=== PATIENT | male | born 1995 | race Caucasian/White ===

== ENCOUNTER 2021-10-04 10:57 | Outpatient (CLI) | payer OTHER | END 2021-10-04 23:59 | disposition critical access hospital (66) | LOC: EMS 10:57 | DX: R55 Syncope and collapse (principal); R42 Dizziness and giddiness; R41.82 Altered mental status, unspecified; W18.39XA Other fall on same level, initial encounter; Y93.H9 Activity, other involving exterior property and land maintenance, building and construction; Y92.69 Other specified industrial and construction area as the place of occurrence of the external cause; Y99.0 Civilian activity done for income or pay | CPT/HCPCS: A0425; A0429 ==

== ENCOUNTER 2021-10-04 11:05 | Emergency (ER) | payer OTHER ==
[2021-10-04 11:31] LABS: BASOPHILS % (AUTO) 0.3 %; EOSINOPHILS # (AUTO) 0.2 10^3/uL (0.0-0.7); HCT - HEMATOCRIT 44.2 % (42.0-52.0); HGB - HEMOGLOBIN 15.3 g/dL (14.0-18.0); LYMPHOCYTES # (AUTO) 2.6 10^3/uL (1.5-3.5); LYMPHOCYTES % (AUTO) 45.1 %; MEAN CORPUSCULAR HGB CONC 34.6 g/dL (32.0-36.0); MEAN CORPUSCULAR VOLUME 83.9 fL (80.0-94.0); MEAN PLATELET VOLUME 10.9 fL (7.4-11.4); MONOCYTES # (AUTO) 0.4 10^3/uL (0.0-1.0); MONOCYTES % (AUTO) 7.6 %; NEUTROPHILS # (AUTO) 2.5 10^3/uL (1.5-6.6); NEUTROPHILS % (AUTO) 43.8 %; PLT - PLATELET COUNT 177 10^3/uL (130-450); RED BLOOD COUNT 5.27 10^6/uL (4.70-6.10); WHITE BLOOD COUNT 5.8 x10^3/uL (4.8-10.8)
[2021-10-04 11:49] LABS: ALBUMIN/GLOBULIN RATIO 1.9 (1.0-2.2); BILIRUBIN,TOTAL 0.9 mg/dL (0.2-1.0); CALCIUM 9.4 mg/dL (8.5-10.3); POTASSIUM 3.9 mmol/L (3.5-5.0); TOTAL PROTEIN 7.6 g/dL (6.7-8.2)
[2021-10-04] MEDS ORDERED: SODIUM CHLORIDE 0.9% 1,000 ML IV STA (12:42)
--- NOTE | 2021-10-04 12:50 | ED Physician Documentation ---
PD HPI SYNCOPE - Stated complaint Stated Complaint: COLLAPSED - Chief complaint Chief Complaint: Neuro - History obtained from History obtained from: Patient, EMS - History of Present Illness Witnessed: Witnessed Timing - onset: Today Duration: Unknown Preceding symptoms: Light headed. No: Chest pain, Palpitations Associated symptoms: No: Seizure, Incontinant of urine, Incontinant of stool, Headache, Vision changes, Chest pain, Diaphoresis, Dyspnea, Nausea / vomiting, None Injury occurred: Fell, None. 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 He states next thing he knew he was on the ground in the ambulance was coming to see him. Has never passed out before. He states he did not eat or drink much today except a red bull. Did have Covid about 2 months ago. Currently asymptomatic. 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 He states that when he was 14 he was told that the hole had fix itself and he has never had a seizure since. No fevers. No chills. No nausea or vomiting. No medications. Review of Systems Ten Systems: 10 systems reviewed and negative Constitutional: denies: Fever, Chills Ears: denies: Ear pain Nose: denies: Rhinorrhea / runny nose, Congestion Throat: denies: Sore throat Cardiac: denies: Chest pain / pressure, Palpitations Respiratory: denies: Dyspnea, Cough GI: denies: Abdominal Pain, Nausea, Vomiting, Diarrhea Skin: denies: Rash Musculoskeletal: denies: Neck pain, Back pain Neurologic: denies: Generalized weakness, Focal weakness, Numbness, Confused, Headache, Head injury, LOC PD PAST MEDICAL HISTORY - Past Medical History Past Medical History: Yes Neuro: Seizure disorder - Present Medications Home Medications: Ambulatory Orders Medication Instructions Recorded Confirmed No Known Home Medications 10/04/21 10/04/21 - Allergies Allergies/Adverse Reactions: Allergies Allergy/AdvReac Type Severity Reaction Status Date / Time No Known Drug Allergies Allergy Verified 10/04/21 11:17 - Social History Does the pt smoke?: No Smoking Status: Never smoker PD ED PE NORMAL - Vitals Vital signs reviewed: Yes - General General: Alert and oriented X 3, No acute distress, Well developed/nourished - HEENT HEENT: PERRL, Moist mucous membranes, Pharynx benign - Neck Neck: Supple, no meningeal sign - Cardiac Cardiac: RRR, No murmur, No gallop, No rub, Strong equal pulses - Respiratory Respiratory: No respiratory distress, Clear bilaterally - Abdomen Abdomen: Soft, Non tender, Non distended - Derm Derm: Warm and dry - Extremities Extremities: No edema, No calf tenderness / cord - Neuro Neuro: Alert and oriented X 3 - Psych Psych: Normal mood, Normal affect Results - Vitals Vitals: Vital Signs - 24 hr 10/04/21 10/04/21 10/04/21 11:12 11:24 14:10 Temperature 36.4 C L Heart Rate 111 H 99 77 Respiratory 18 19 20 Rate Blood Pressure 160/74 H 160/74 H 151/79 H O2 Saturation 100 100 98 Oxygen O2 Source Room air - EKG (time done) 1113 Rate: Rate (enter#) (102) Rhythm: Sinus tachycardia (102) [place]: Normal Intervals: Normal [place] QRS: Normal Ischemia: ST elevation c/w repol - Labs Labs: Laboratory Tests 10/04/21 10/04/21 10/04/21 11:20 11:27 11:27 WBC 5.8 RBC 5.27 Hgb 15.3 Hct 44.2 MCV 83.9 MCH 29.0 MCHC 34.6 RDW 13.0 Plt Count 177 MPV 10.9 Neut # (Auto) 2.5 Lymph # (Auto) 2.6 [place] # (Auto) 0.4 Eos # (Auto) 0.2 Baso # (Auto) 0.0 Absolute Nucleated RBC 0.00 Nucleated RBC % 0.0 D-Dimer Sodium 135 Potassium 3.9 Chloride 98 L Carbon Dioxide 24 Anion Gap 13.0 BUN 14 Creatinine 1.0 Estimated GFR (MDRD) 93 Glucose 102 H POC Whole Bld Glucose 91 Calcium 9.4 Total Bilirubin 0.9 AST 30 ALT 27 Alkaline Phosphatase 78 Troponin I High Sens Total Protein 7.6 Albumin 5.0 Globulin 2.6 Albumin/Globulin Ratio 1.9 Lipase 30 10/04/21 10/04/21 11:27 12:58 WBC RBC Hgb Hct MCV MCH MCHC RDW Plt Count MPV Neut # (Auto) Lymph # (Auto) [place] # (Auto) Eos # (Auto) Baso # (Auto) Absolute Nucleated RBC Nucleated RBC % D-Dimer < 200.0 L Sodium Potassium Chloride Carbon Dioxide Anion Gap BUN Creatinine Estimated GFR (MDRD) Glucose POC Whole Bld Glucose Calcium Total Bilirubin AST ALT Alkaline Phosphatase Troponin I High Sens 3.4 Total Protein Albumin Globulin Albumin/Globulin Ratio Lipase PD MEDICAL DECISION MAKING - ED course Complexity details: reviewed results, re-evaluated patient, considered differential, d/w patient ED course: Patient with what appears to likely been vasovagal syncope. No evidence of arrhythmia here. Borderline QT prolongation on EKG, likely rate related. No murmur. No significant lab abnormalities. Patient remained asymptomatic. No arrhythmia on telemetry. We will have him follow-up with his doctor for further care. Patient counseled regarding signs and symptoms for which I believe and urgent re-evaluation would be necessary. Patient with good understanding of and agreement to plan and is comfortable going home at this time This document was made in part using voice recognition software. While efforts are made to proofread this document, sound alike and grammatical errors may occur. Departure - Departure Disposition: 01 Home, Self Care Clinical Impression: Syncope Qualifiers: Syncope type: unspecified Qualified Code(s): R55 - Syncope and collapse Condition: Good Instructions: ED Syncope Vasovagal Follow-Up: your,doctor in 1 week [Other] Comments: The cause of your symptoms is unclear today. Your EKG, chest x-ray, laboratory testing did not show any acute abnormalities. Please drink plenty of fluids and rest. Please follow-up with your doctor within 1 week. I would limit caffeine intake as well as any alcohol. Your EKG did show a borderline prolongation of your QT interval and your doctor may want to place you on a heart monitor to make sure there are no arrhythmias. They will likely want to perform an echocardiogram as well. Discharge Date/Time: 10/04/21 14:16
--- NOTE | 2021-10-04 12:58 | XRAY Report ---
PROCEDURE: Chest 1 View X-Ray INDICATIONS: syncope TECHNIQUE: One view of the chest was acquired. COMPARISON: None FINDINGS: Surgical changes and devices: None. Lungs and pleura: No pleural effusions or pneumothorax. Lungs are clear. Mediastinum: Mediastinal contours appear normal. Heart size is normal. Bones and chest wall: No suspicious bony lesions. Overlying soft tissues appear unremarkable. IMPRESSION: No acute cardiopulmonary abnormality. Reviewed by: Alfonzo Donaldson on 10/04/2021 12:56 PM [facility] Approved by: Alfonzo Donaldson on 10/04/2021 12:56 PM [facility] Station ID: [id number]
[2021-10-04 14:15] VITALS: BP 151/79
== END 2021-10-04 14:16 | disposition home or self-care (01) ==
LOC: ED 11:05
DX: R55 Syncope and collapse (principal); R00.0 Tachycardia, unspecified
CPT/HCPCS: 36415; 80053; 83690; 84484; 85025; 85379; 93005; 99284